=== PATIENT | female | born 1990 | race Caucasian/White ===

== ENCOUNTER 2016-08-29 08:57 | Emergency (ER) | payer OTHER ==
[~2016-08-29] VITALS: Ht 160 cm; Wt 74.7 kg
[~2016-08-29 08:57] MED LIST: ZOFR4TAB3 SL
[2016-08-29 09:15] VITALS: BP 117/81; TEMP 98.1
[2016-08-29] MEDS ORDERED: PROM25TA5 PO (09:44)
[2016-08-29] MEDS ORDERED: CEPH-460 PO (09:44)
--- NOTE | 2016-08-29 09:44 | PD ---
HPI . Persistent vomiting in , cold symptoms, painful mass on her left labia Chief Complaint: Lump, Cyst, Hernia Time Seen by Provider: 09:23 Travel History International Travel<30 days: No Contact w/Intl Traveler<30days: No Traveled to known affect area: No History of Present Illness HPI This patient presents with multiple symptoms. Her chief complaint is that she has developed a mass on her left labia. She is concerned that she has developed a hernia because of persistent vomiting. She states that the mass started yesterday and is actually a bit smaller today but more painful. Patient states that she's been having morning sickness all day long for several weeks. She states that she was 9 weeks . She is taking Zofran 8 mg ODT as needed for vomiting out much relief. 2 days ago, she developed cold symptoms consisting of rhinorrhea, cough and subjective fever. She has taken a subtherapeutic dose of NyQuil without much relief. She states that she did not take a therapeutic dose because of her . The patient further reports constipation associated with Zofran. She states she is taking an [id number] stool softener for . PFSH Past Medical History Hx Anticoagulant Therapy: No ADHD: No Anemia: Yes Asthma: No Autoimmune Disease: Yes Bipolar Disorder: Yes Anxiety: Yes Cancer: No Cardiovascular Problems: No Chemotherapy: No COPD: No Cerebrovascular Accident: No Diabetes: No Diminished Hearing: No Endocrine: Yes (ADRENAL INSUFFICIENCY) Gastrointestinal Disorders: Yes (CELIAC DIS., ULCER HX) GERD: Yes Genitourinary: No Hepatitis: No Hiatal Hernia: No Immune Disorder: No Musculoskeletal: No Neurologic: Yes (SEIZURE HX (UNKNOWN CAUSE), NEUROPATHY LEFT FACE/ARM) Psychiatric: Yes (PTSD, PANIC ATTACKS) Reproductive: No Respiratory: Yes (asthma) Migraines: No Seizures: Yes (HX OF SEIZURES, NOT SINCE AGE 24) Shingles: Yes Sleep Apnea: No Thyroid Disease: No Ulcer: Yes (GASTRIC) PNEUMOCCOCAL Vaccine (Year): 2009 ?: LMP: 06/24/16 Menopausal: No : 2 Para: 1 Past Surgical History Abdominal Surgery: No AICD: No Appendectomy: No Cardiac Surgery: No Cholecystectomy: No Ear Surgery: Yes ("TUBES IN EARS" SEMI-PERMANENT T TUBES) Endocrine Surgery: No Eye Surgery: No Genitourinary Surgery: No Gynecologic Surgery: No Hysterectomy: No Joint Replacement: No Oral Surgery: Yes (TONSILLECTOMY) Pacemaker: No Thoracic Surgery: No Tonsillectomy: Yes Other Surgery: Yes (SINUS RECONSTRUCTION) Social History Alcohol Use: No ("NO DRINKING SINCE MAY 2016") Tobacco Use: Yes (08/01 PPD) Substance Use: Yes ("MARIJUANA OCCASIONALLY") Allergies-Medications (Allergen,Severity, Reaction): Coded Allergies: [place] Nut (Unverified Allergy, Severe, THROAT CLOSES, 08/29/16) Lobster (Unverified Allergy, Severe, VERTIGO, ITCH, THROAT SWELLING, ) Lortab (Verified Allergy, Severe, PALPITATIONS, ITCHING, 08/29/16) [place] (Unverified Allergy, Severe, THROAT CLOSES, 08/29/16) Pineapple (Unverified Allergy, Severe, THROAT CLOSES, ITCH, 08/29/16) Shrimp (Unverified Allergy, Severe, VERTIGO, ITCH, THROAT SWELLILNG, ) Sweet Potato (Unverified Allergy, Severe, THROAT CLOSES, ITCH, VERTIGO, 08/29/16) Gluten (Verified Allergy, Unknown, 08/29/16) *MDRO Multi-Drug Resistant Organism (Verified Adverse Reaction, Unknown, ) 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) Reported Meds & Prescriptions Reported Meds & Active Scripts Active Zofran Odt (Ondansetron Odt) 4 Mg Tab 4 Mg SL Q6HR PRN Review of Systems Except as stated in HPI: all other systems reviewed are Neg General / Constitutional: Positive: Fever, Chills HENT: Positive: Rhinorrhea, Congestion Respiratory: Positive: Cough Gastrointestinal: Positive: Nausea, Vomiting, Constipation Genitourinary: No: Urgency, Frequency, Dysuria Skin: Positive Other (painful mass on her left labia) Physical Exam Narrative GENERAL: This is a healthy-appearing young woman in no acute distress. SKIN: Warm and dry. She has got an early abscess on her left labia majora. It is about 3 cm X 1 cm. It is indurated but is not fluctuant. The overlying skin is not red or hot. It is not a Bartholin's gland abscess. HEAD: Atraumatic. Normocephalic. EYES: Pupils equal and round. ENT: No nasal bleeding or discharge. Mucous membranes pink and moist. Edema of the nasal mucosa. NECK: Trachea midline. Neck is supple with no cervical lymphadenopathy. CARDIOVASCULAR: Regular rate and rhythm. Heart sounds are normal. RESPIRATORY: No accessory muscle use. Lungs are clear with full air movement throughout. GASTROINTESTINAL: Abdomen soft, non-tender, nondistended. MUSCULOSKELETAL: No obvious deformities. No edema. NEUROLOGICAL: Awake and alert. No obvious cranial nerve deficits. Motor grossly within normal limits. Normal speech. PSYCHIATRIC: Appropriate mood and affect; insight and judgment normal. Data Data Last Documented VS Vital Signs Date Time Temp Pulse Resp B/P Pulse Ox O2 Delivery O2 Flow Rate FiO2 08/29/16 09:15 98.1 103 16 117/81 [facility] Medical Decision Making Medical Screen Exam Complete: Yes Emergency Medical Condition: Yes Differential Diagnosis Differential diagnosis of upper respiratory symptoms includes but is not limited to influenza, upper respiratory infection, bronchitis, pneumonia. Differential diagnosis of vomiting includes but is not limited to viral gastritis, food poisoning, pancreatitis, pneumonia, hepatitis, acute coronary syndrome. Narrative Course This patient presents with several issues. She has a cold. She is also with morning sickness which is not controlled by Zofran. And she has an abscess on her left labia. Diagnosis Primary Impression: Abscess of labia majora Additional Impressions: Vomiting affecting , antepartum URI (upper respiratory infection) Qualified Code: J06.9 - Viral upper respiratory tract infection Patient Instructions: Abscess (ED), Cold Symptoms (ED), General Instructions, Nausea and Vomiting in (ED) Additional Instructions: Milk of magnesia at bedtime nightly until stools are soft. Warm, moist heat to genitalia. See your lay out carpenter for recheck of this. Scripts Promethazine (Phenergan)25 Mg Tab25 Mg PO Q6H PRN (Nausea/Vomiting) #30 TAB Ref 0 Prov:Vidhi Mcclellan MD 08/29/16 Cephalexin (Keflex)500 Mg Grm268 Mg PO Q8H #30 CAP Ref 0 Prov:Vidhi Mcclellan MD 08/29/16 Disposition: 01 DISCHARGE HOME Condition: Stable Vidhi Mcclellan MD Aug 29, 2016 09:44
== END 2016-08-29 10:08 | disposition home or self-care (01) ==
LOC: PHED 08:57
DX: O23.591 Infection of other part of genital tract in pregnancy, first trimester (principal); N76.4 Abscess of vulva; O21.9 Vomiting of pregnancy, unspecified; J06.9 Acute upper respiratory infection, unspecified; Z3A.09 9 weeks gestation of pregnancy
CPT/HCPCS: 99283

== ENCOUNTER 2016-11-05 12:10 | Emergency (ER) | payer MEDICAID, OTHER ==
[~2016-11-05] VITALS: Ht 160 cm; Wt 75.0 kg
[~2016-11-05 12:10] MED LIST changes: +CEPH-460 PO; +PROM25TA5 PO
[2016-11-05 12:17] VITALS: BP 109/74; PULSE 98; RESP 16; TEMP 98.4; O2SAT 96
--- NOTE | 2016-11-05 12:52 | PD ---
HPI Chief Complaint: Seizure Time Seen by Provider: 12:36 Travel History International Travel<30 days: No Contact w/Intl Traveler<30days: No Traveled to known affect area: No History of Present Illness HPI The patient was seen and examined in the presence of the nurse. This patient reports that she has "stress-induced seizures". She was arguing with her boyfriend and got stressed out and says that she had one of her events. She fell forward and hit her abdominal wall. She is 19 weeks dated by early ultrasound. It doesn't sound like these are true seizures. She is awake during them. There is no tonic-clonic activity or postictal state. She is not supposed to be on seizure medication for them. Regardless she wanted to make sure the baby was okay. She's had no fluid gush or bleeding. Duration 1 hour. PFSH Past Medical History Hx Anticoagulant Therapy: No ADHD: No Anemia: Yes Asthma: No Autoimmune Disease: Yes Bipolar Disorder: Yes Anxiety: Yes Cancer: No Cardiovascular Problems: No Chemotherapy: No COPD: No Cerebrovascular Accident: No Diabetes: No Diminished Hearing: No Endocrine: Yes (ADRENAL INSUFFICIENCY) Gastrointestinal Disorders: Yes (CELIAC DIS., ULCER HX) GERD: Yes Genitourinary: No Hepatitis: No Hiatal Hernia: No Immune Disorder: No Musculoskeletal: No Neurologic: Yes (SEIZURE HX (UNKNOWN CAUSE), NEUROPATHY LEFT FACE/ARM) Psychiatric: Yes (PTSD, PANIC ATTACKS) Reproductive: No Respiratory: Yes (asthma) Migraines: No Seizures: Yes (HX OF SEIZURES, NOT SINCE AGE 24) Shingles: Yes Sleep Apnea: No Thyroid Disease: No Ulcer: Yes (GASTRIC) PNEUMOCCOCAL Vaccine (Year): 2009 ?: LMP: 06/07/16 Menopausal: No : 2 Para: 1 Past Surgical History Abdominal Surgery: No AICD: No Appendectomy: No Cardiac Surgery: No Cholecystectomy: No Ear Surgery: Yes ("TUBES IN EARS" SEMI-PERMANENT T TUBES) Endocrine Surgery: No Eye Surgery: No Genitourinary Surgery: No Gynecologic Surgery: No Hysterectomy: No Joint Replacement: No Neurologic Surgery: No Oral Surgery: Yes (TONSILLECTOMY) Pacemaker: No Thoracic Surgery: No Tonsillectomy: Yes (AND ADENOIDS) Other Surgery: Yes (BILATERAL SINUS RECONSTRUCTION) Social History Alcohol Use: No ("NO DRINKING SINCE MAY 2016") Tobacco Use: No Substance Use: No (DENIES; HX OF "MARIJUANA OCCASIONALLY") Allergies-Medications (Allergen,Severity, Reaction): Coded Allergies: [place] Nut (Unverified Allergy, Severe, THROAT CLOSES, 11/05/16) Lobster (Unverified Allergy, Severe, VERTIGO, ITCH, THROAT SWELLING, ) Lortab (Verified Allergy, Severe, PALPITATIONS, ITCHING, 11/05/16) [place] (Unverified Allergy, Severe, THROAT CLOSES, 11/05/16) Pineapple (Unverified Allergy, Severe, THROAT CLOSES, ITCH, 11/05/16) Shrimp (Unverified Allergy, Severe, VERTIGO, ITCH, THROAT SWELLILNG, ) Sweet Potato (Unverified Allergy, Severe, THROAT CLOSES, ITCH, VERTIGO, 05/14) Gluten (Verified Allergy, Unknown, 11/05/16) *MDRO Multi-Drug Resistant Organism (Verified Adverse Reaction, Unknown, ) 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) Reported Meds & Prescriptions Reported Meds & Active Scripts Active Phenergan (Promethazine HCl) 25 Mg Tab 25 Mg PO Q6H PRN Keflex (Cephalexin) 500 Mg Cap 500 Mg PO Q8H Zofran Odt (Ondansetron Odt) 4 Mg Tab 4 Mg SL Q6HR PRN Review of Systems General / Constitutional: No: Fever HENT: No: Lightheadedness Cardiovascular: No: Chest Pain or Discomfort Respiratory: No: Shortness of Breath Gastrointestinal: No: Vomiting Physical Exam Narrative GENERAL: Well-nourished, well-developed patient in no apparent distress. SKIN: Focused skin assessment reveals no rash and nodules. Skin is Warm and dry. HEAD: Atraumatic. Normocephalic. EYES: Pupils equal and round. No scleral icterus. No injection or drainage. ENT: No nasal bleeding or discharge. Mucous membranes pink and moist. NECK: Trachea midline. No JVD. CARDIOVASCULAR: Regular rate and rhythm. No murmur appreciated. RESPIRATORY: No accessory muscle use. Clear to auscultation. Breath sounds equal bilaterally. GASTROINTESTINAL: Abdomen soft, gravid uterus is non-tender, nondistended. Hepatic and splenic margins not palpable. MUSCULOSKELETAL: No obvious deformities. No clubbing. No cyanosis. No edema. NEUROLOGICAL: Awake and alert. No obvious cranial nerve deficits. Motor grossly within normal limits. Normal speech. PSYCHIATRIC: Appropriate mood and affect; insight and judgment normal. Pelvic: Sterile gloves were used for her cervix evaluation. No blood or fluid in the vault. Cervix closed. Data Data Last Documented VS Vital Signs Date Time Temp Pulse Resp B/P Pulse Ox O2 Delivery O2 Flow Rate FiO2 11/05/16 12:45 16 11/05/16 12:17 98.4 98 109/74 96 MDM Medical Decision Making Medical Screen Exam Complete: Yes Emergency Medical Condition: Yes Medical Record Reviewed: Yes Differential Diagnosis Abdominal wall contusion, abdominal wall strain, miscarriage Narrative Course I have reviewed the patient's electronic medical record. No objective evidence of anything serious happening at this time No objective findings of injury to the patient Cervix closed without bleeding heart tones 140 and regular Good movement reported by mother Recommend they notified her OB physician to get a follow-up check Pelvic rest recommended in the meantime Diagnosis Primary Impression: Abdominal wall contusion Additional Impression: Qualified Code: Z3A.19 - 19 weeks gestation of Additional Instructions: The patient was advised to follow up with their physician and return if they worsen. Med/Other Pt SpecificInfo: Other Disposition: 01 DISCHARGE HOME Condition: Stable Heron Fagan MD Nov 05, 2016 12:52
== END 2016-11-05 12:58 | disposition home or self-care (01) ==
LOC: PHED 12:10
DX: O26.892 Other specified pregnancy related conditions, second trimester (principal); O99.342 Other mental disorders complicating pregnancy, second trimester; O99.282 Endocrine, nutritional and metabolic diseases complicating pregnancy, second trimester; S30.1XXA Contusion of abdominal wall, initial encounter; E27.40 Unspecified adrenocortical insufficiency; F31.9 Bipolar disorder, unspecified; Z3A.19 19 weeks gestation of pregnancy; W18.30XA Fall on same level, unspecified, initial encounter; Y93.9 Activity, unspecified; Y92.9 Unspecified place or not applicable; Y99.9 Unspecified external cause status
CPT/HCPCS: 99283

== ENCOUNTER 2017-07-18 20:18 | Emergency (ER) | payer MEDICAID ==
[2017-07-18 20:21] VITALS: BP 115/58; PULSE 77; RESP 20; TEMP 98.3; O2SAT 98
[2017-07-18] MEDS ORDERED: TYLE325T PO (20:33)
--- NOTE | 2017-07-18 21:11 | PD ---
HPI Chief Complaint: Injury Time Seen by Provider: 20:50 Travel History International Travel<30 days: No Contact w/Intl Traveler<30days: No Traveled to known affect area: No History of Present Illness HPI pt had her left hand slammed in the car door at 4 pm 3 hrs prior to presentation to ER , no laceration and no obvious deformity but she has thenar eminence area tenderness and radial area wrist pain PFSH Past Medical History Hx Anticoagulant Therapy: No ADHD: No Anemia: Yes Asthma: No Autoimmune Disease: Yes Bipolar Disorder: Yes Anxiety: Yes Cancer: No Cardiovascular Problems: No Chemotherapy: No COPD: No Cerebrovascular Accident: No Diabetes: No Diminished Hearing: No Endocrine: Yes (ADRENAL INSUFFICIENCY) Gastrointestinal Disorders: Yes (CELIAC DIS., ULCER HX) GERD: Yes Genitourinary: No Hepatitis: No Hiatal Hernia: No Hypertension: No Immune Disorder: No Musculoskeletal: No Neurologic: Yes (SEIZURE HX (UNKNOWN CAUSE), NEUROPATHY LEFT FACE/ARM) Psychiatric: Yes (PTSD, PANIC ATTACKS) Reproductive: No Respiratory: Yes (asthma) Immunizations Current: Yes Migraines: No Seizures: Yes (HX OF SEIZURES, NOT SINCE AGE 24) Shingles: Yes Sleep Apnea: No Thyroid Disease: No Ulcer: Yes (GASTRIC) Tetanus Vaccination: < 5 Years Influenza Vaccination: No PNEUMOCCOCAL Vaccine (Year): 2009 ?: Not Menopausal: No : 2 Para: 1 Past Surgical History Abdominal Surgery: No AICD: No Appendectomy: No Cardiac Surgery: No Cholecystectomy: No Ear Surgery: Yes ("TUBES IN EARS" SEMI-PERMANENT T TUBES) Endocrine Surgery: No Eye Surgery: No Genitourinary Surgery: No Gynecologic Surgery: No Hysterectomy: No Joint Replacement: No Neurologic Surgery: No Oral Surgery: Yes (TONSILLECTOMY) Pacemaker: No Thoracic Surgery: No Tonsillectomy: Yes (AND ADENOIDS) Other Surgery: Yes (BILATERAL SINUS RECONSTRUCTION) Social History Alcohol Use: No (Rare) Tobacco Use: Yes (1/2 PPD) Substance Use: No (Marijuana weekly) Allergies-Medications (Allergen,Severity, Reaction): Coded Allergies: acetaminophen (Verified Allergy, Severe, PALPITATIONS, ITCHING, 07/18/17) bertholletia excelsa (Verified Allergy, Severe, THROAT CLOSES, 07/18/17) hydrocodone (Verified Allergy, Severe, PALPITATIONS, ITCHING, 07/18/17) orange (Verified Allergy, Severe, THROAT CLOSES, 07/18/17) pineapple (Verified Allergy, Severe, THROAT CLOSES, ITCH, 07/18/17) shellfish derived (Verified Allergy, Severe, VERTIGO, ITCH, THROAT SWELLING, 07/18/17) shrimp (Verified Allergy, Severe, VERTIGO, ITCH, THROAT SWELLILNG, ) sweet potato (Verified Allergy, Severe, THROAT CLOSES, ITCH, VERTIGO, ) tree nut (Verified Allergy, Severe, THROAT CLOSES, 07/18/17) gluten (Verified Allergy, Unknown, 07/18/17) *MDRO Multi-Drug Resistant Organism (Verified Adverse Reaction, Unknown, 07/18/17) 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) Reported Meds & Prescriptions Reported Meds & Active Scripts Active Ibuprofen 800 Mg Tab 800 Mg PO Q6HR PRN Reported Tylenol (Acetaminophen) 325 Mg Tab 650 Mg PO Q4H PRN Review of Systems Except as stated in HPI: all other systems reviewed are Neg Musculoskeletal: Positive: Myalgias, Arthralgias (thumb tenderness after car door slammed on it) Physical Exam Narrative GENERAL: non toxic AOX3 SKIN: Warm and dry. HEAD: Atraumatic. Normocephalic. EYES: Pupils equal and round. No scleral icterus. No injection or drainage. ENT: No nasal bleeding or discharge. Mucous membranes pink and moist. NECK: Trachea midline. No JVD. CARDIOVASCULAR: Regular rate and rhythm. RESPIRATORY: No accessory muscle use. Clear to auscultation. Breath sounds equal bilaterally. GASTROINTESTINAL: Abdomen soft, non-tender, nondistended. Hepatic and splenic margins not palpable. MUSCULOSKELETAL: Extremities Left thenar eminence very tender no lac no hematoma , mild swelling without clubbing, cyanosis, or edema. No obvious deformities. NEUROLOGICAL: Awake and alert. No obvious cranial nerve deficits. Motor grossly within normal limits. Five out of 5 muscle strength in the arms and legs. Normal speech. PSYCHIATRIC: Appropriate mood and affect; insight and judgment normal. Data Data Last Documented VS Vital Signs Date Time Temp Pulse Resp B/P (MAP) Pulse Ox O2 Delivery O2 Flow Rate FiO2 07/18/17 20:21 98.3 77 20 115/58 (77) 98 Orders Orders Hand, Complete ([id number]) (07/18/17 ) Ibuprofen (Motrin) (07/18/17 21:15) Rafael Bandage (07/18/17 21:44) Ed Discharge Order (07/18/17 21:48) MDM Medical Decision Making Medical Screen Exam Complete: Yes Emergency Medical Condition: Yes Differential Diagnosis sprain vs ligamentous inury vs scaphoid injury vs fractured thumb metacarpal , Narrative Course X-rays were negative for fracture or ligamentous injury patient is placed in a Rafael wrap given Motrin prescription and discharged home to follow-up as an outpatient Diagnosis Primary Impression: Contusion Additional Impression: Contusion of hand, left Qualified Codes: S60.222A - Contusion of left hand, initial encounter Scripts Ibuprofen (Ibuprofen) 800 Mg Tab 800 MG PO Q6HR Y for PAIN, #20 TAB 0 Refills Prov: Candelario Arriola MD 07/18/17 Disposition: 01 DISCHARGE HOME Condition: Good Candelario Arriola MD Jul 18, 2017 21:11
[2017-07-18] MEDS ORDERED: IBUPROFEN 600 MG TAB PO ONE (21:15)
--- NOTE | 2017-07-18 21:32 | RADRPT ---
EXAM DATE/TIME: 07/18/2017 21:05 [facility] COMPARISON: No previous studies available for comparison. INDICATIONS : Car door slammed on hand this afternoon. Pain in first digit radiating up to her wrist. MEDICAL HISTORY : . Gastroesophageal reflux disease. Seizures. Neuropathy. Asthma. Ulcer. Celiac disease. Adre nal insufficiency. Bipolar disorder. Post traumatic stress disorder. Anemia. Shingles. SURGICAL HISTORY : Tonsillectomy. Ear surgery. Sinus reconstruction ENCOUNTER: Initial ACUITY: 1 day PAIN SCORE: 7/10 LOCATION: Left Thumb FINDINGS: Three view examination of the left hand demonstrates no soft tissue swelling, dislocation, or fractur e. The carpal bones appear intact. The interphalangeal and metacarpophalangeal joints are intact. Bony mineralization is normal. CONCLUSION: No evidence of recent bony injury. Kyle Upton MD on July 18, 2017 at 21:29 Board Certified Radiologist. This report was verified electronically.
[2017-07-18] MEDS ORDERED: IBUP1TAB7 PO (21:47)
== END 2017-07-18 21:56 | disposition home or self-care (01) ==
LOC: PHEFT 20:18
DX: S60.222A Contusion of left hand, initial encounter (principal); F31.9 Bipolar disorder, unspecified; E27.40 Unspecified adrenocortical insufficiency; K21.9 Gastro-esophageal reflux disease without esophagitis; F43.10 Post-traumatic stress disorder, unspecified; J45.909 Unspecified asthma, uncomplicated; W23.0XXA Caught, crushed, jammed, or pinched between moving objects, initial encounter; F17.210 Nicotine dependence, cigarettes, uncomplicated
CPT/HCPCS: 73130; 99283

== ENCOUNTER 2017-09-12 15:03 | Emergency (ER) | payer MEDICAID ==
[~2017-09-12] VITALS: Ht 160 cm; Wt 72.0 kg
[~2017-09-12 15:03] MED LIST changes: -CEPH-460 PO; +IBUP1TAB7 PO; -PROM25TA5 PO; +TYLE325T PO; -ZOFR4TAB3 SL
[2017-09-12 15:06] VITALS: BP 126/72; PULSE 93; RESP 16; TEMP 98.5; O2SAT 96
[2017-09-12] MEDS ORDERED: OFLO0.3D5 LEFT EAR (15:21)
[2017-09-12] MEDS ORDERED: birth control pill PO (15:24)
[2017-09-12] MEDS ORDERED: HYDR-3133 PO (15:24)
--- NOTE | 2017-09-12 15:29 | PD ---
HPI Chief Complaint: ENT Complaint Time Seen by Provider: 15:08 Travel History International Travel<30 days: No Contact w/Intl Traveler<30days: No Traveled to known affect area: No History of Present Illness HPI 27-year-old female presents to the emergency room for evaluation of left ear pain for the past 6 days. Patient had bilateral tympanostomy tube placement about 2 years ago for chronic eustachian tube dysfunction and has had intermittent issues with otorrhea since then. States the drainage is chronic and no worse than typical over the past several days. Pain is increasing. Pain started to worsen after she accidentally got water in her ears during the shower. She has taken Tylenol and Excedrin without significant relief in symptoms. She denies any fevers. States she can feel fluid moving behind her eardrum. She does not have an ENT at the moment because of insurance reasons. History of Dmitriy's, celiac, anxiety, and PTSD. PFSH Past Medical History Hx Anticoagulant Therapy: No ADHD: No Anemia: Yes Asthma: No Autoimmune Disease: Yes Bipolar Disorder: Yes Anxiety: Yes Cancer: No Cardiovascular Problems: No Chemotherapy: No COPD: No Cerebrovascular Accident: No Diabetes: No Diminished Hearing: No Endocrine: Yes (ADRENAL INSUFFICIENCY, dmitriy's disease) Gastrointestinal Disorders: Yes (CELIAC DIS., ULCER HX) GERD: Yes Genitourinary: No Hepatitis: No Hiatal Hernia: No Hypertension: No Immune Disorder: No Musculoskeletal: No Neurologic: Yes (SEIZURE HX (UNKNOWN CAUSE), NEUROPATHY LEFT FACE/ARM) Psychiatric: Yes (PTSD, PANIC ATTACKS) Reproductive: No Respiratory: Yes (asthma) Immunizations Current: Yes Migraines: No Seizures: Yes (HX OF SEIZURES, NOT SINCE AGE 24) Shingles: Yes Sleep Apnea: No Thyroid Disease: No Ulcer: Yes (GASTRIC) PNEUMOCCOCAL Vaccine (Year): 2009 ?: Not LMP: 2 DAYS Menopausal: No : 2 Para: 1 Past Surgical History Abdominal Surgery: No AICD: No Appendectomy: No Cardiac Surgery: No Cholecystectomy: No Ear Surgery: Yes ("TUBES IN EARS" SEMI-PERMANENT T TUBES) Endocrine Surgery: No Eye Surgery: No Genitourinary Surgery: No Gynecologic Surgery: No Hysterectomy: No Joint Replacement: No Neurologic Surgery: No Oral Surgery: Yes (TONSILLECTOMY) Pacemaker: No Thoracic Surgery: No Tonsillectomy: Yes (AND ADENOIDS) Other Surgery: Yes (BILATERAL SINUS RECONSTRUCTION) Social History Alcohol Use: No (Rare) Tobacco Use: Yes (1/2 PPD) Substance Use: No (Marijuana weekly) Allergies-Medications (Allergen,Severity, Reaction): Coded Allergies: acetaminophen (Verified Allergy, Severe, PALPITATIONS, ITCHING, 09/12/17) bertholletia excelsa (Verified Allergy, Severe, THROAT CLOSES, 09/12/17) hydrocodone (Verified Allergy, Severe, PALPITATIONS, ITCHING, 09/12/17) orange (Verified Allergy, Severe, THROAT CLOSES, 09/12/17) pineapple (Verified Allergy, Severe, THROAT CLOSES, ITCH, 09/12/17) shellfish derived (Verified Allergy, Severe, VERTIGO, ITCH, THROAT SWELLING, 09/12/17) shrimp (Verified Allergy, Severe, VERTIGO, ITCH, THROAT SWELLILNG, 09/12/17 ) sweet potato (Verified Allergy, Severe, THROAT CLOSES, ITCH, VERTIGO, 09/12) tree nut (Verified Allergy, Severe, THROAT CLOSES, 09/12/17) gluten (Verified Allergy, Unknown, 09/12/17) *MDRO Multi-Drug Resistant Organism (Verified Adverse Reaction, Unknown, ) 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) Reported Meds & Prescriptions Reported Meds & Active Scripts Active Ofloxacin Opth Drops 0.3 % Drops 4 Drop LEFT EAR BID Ibuprofen 800 Mg Tab 800 Mg PO Q6HR PRN Reported Tylenol (Acetaminophen) 325 Mg Tab 650 Mg PO Q4H PRN Review of Systems Except as stated in HPI: all other systems reviewed are Neg Physical Exam Narrative GENERAL: Well-nourished, well-developed female no acute distress. Afebrile. Ambulatory. SKIN: Focused skin assessment warm/dry. HEAD: Normocephalic. EYES: No scleral icterus. No injection or drainage. EARS: Bilateral pinnae and external canals appear within normal limits. Bilateral tympanic membranes without erythema, dullness. No drainage. Bilateral tympanostomy tubes in place and patent. NECK: Supple, trachea midline. No JVD or lymphadenopathy. CARDIOVASCULAR: Regular rate and rhythm without murmurs, gallops, or rubs. RESPIRATORY: Breath sounds equal bilaterally. No accessory muscle use. Data Data Last Documented VS Vital Signs Date Time Temp Pulse Resp B/P (MAP) Pulse Ox O2 Delivery O2 Flow Rate FiO2 09/12/17 15:06 98.5 93 16 126/72 (90) 96 MDM Medical Decision Making Medical Screen Exam Complete: Yes Emergency Medical Condition: Yes Medical Record Reviewed: Yes Differential Diagnosis Tympanostomy tube otorrhea, eustachian tube dysfunction, otitis media, otitis externa Narrative Course 27-year-old female presents to the emergency room for evaluation of left ear pain for the past 6 days. She has chronic drainage from the ears after tympanostomy tube placement 2 years ago but it is no worse than normal. No fevers. Bilateral tympanic membranes without erythema, dullness. No drainage. Bilateral tympanostomy tubes in place and patent. Patient will be treated for tympanostomy tube otorrhea given recent exposure to water and worsening pain. Told to follow-up with an ENT or return for worsening symptoms. She understands and agrees to plan. Diagnosis Primary Impression: Chronic otorrhea Qualified Codes: H92.13 - Otorrhea, bilateral Referrals: Primary Care Physician Additional Instructions: Apply drops as directed. Follow up with ENT. Return for worsening symptoms. Scripts Ofloxacin Opth Drops (Ofloxacin Opth Drops) 0.3 % Drops 4 DROP LEFT EAR BID, #1 BOTTLE Prov: César Perez MD 09/12/17 Disposition: 01 DISCHARGE HOME Condition: Stable Ciarra Walter Sep 12, 2017 15:29
== END 2017-09-12 15:37 | disposition home or self-care (01) ==
LOC: PHEFT 15:03
DX: H92.13 Otorrhea, bilateral (principal); E27.1 Primary adrenocortical insufficiency; F31.9 Bipolar disorder, unspecified; F43.10 Post-traumatic stress disorder, unspecified; F41.0 Panic disorder [episodic paroxysmal anxiety]; F17.210 Nicotine dependence, cigarettes, uncomplicated; Z88.5 Allergy status to narcotic agent
CPT/HCPCS: 99283

== ENCOUNTER 2017-09-26 08:47 | Emergency (ER) | payer MEDICAID ==
[~2017-09-26 08:47] MED LIST changes: +HYDR-3133 PO; -IBUP1TAB7 PO; +OFLO0.3D5 LEFT EAR; -TYLE325T PO; +birth control pill PO
[2017-09-26 08:55] VITALS: BP 131/97; PULSE 89; RESP 18; TEMP 97.4; O2SAT 99
[2017-09-26] MEDS ORDERED: SODIUM CHLOR 0.9% 1000 ML INJ 1,000 ML IV ONE ×2 (09:00)
[2017-09-26] MEDS ORDERED: ONDANSETRON HCL 4 MG/2 ML VIAL IV PUSH ONE ×2 (09:00→10:45)
--- NOTE | 2017-09-26 09:04 | PD ---
HPI Chief Complaint: Abdominal Pain Time Seen by Provider: 08:56 Travel History International Travel<30 days: No Contact w/Intl Traveler<30days: No Traveled to known affect area: No History of Present Illness HPI This 27-year-old female is complaining of vomiting diarrhea and abdominal pain. Symptoms started early this morning around 3 AM. She has had persistent vomiting. The pain she is having she thinks is from the vomiting. It is from the epigastric area to the mid abdominal area it is crampy in nature she has a history of celiac disease but says this does not feel like her celiac disease acting up. Her blood count has come back elevated at 22,000. On further questioning about this the patient states that she has been told that her white count has been high in the past and she has been recommended that she follow-up with her oncologist regarding this. She had been to an soda fountain clerk who had noted that her white count was high. She denies any cough. She has not had any dysuria. She says she was well until 3 this morning with started vomiting. She had been out to eat at [place] last night PFSH Past Medical History Hx Anticoagulant Therapy: No ADHD: No Anemia: Yes Asthma: No Autoimmune Disease: Yes Bipolar Disorder: Yes Anxiety: Yes Cancer: No Cardiovascular Problems: No Chemotherapy: No COPD: No Cerebrovascular Accident: No Diabetes: No Diminished Hearing: No Endocrine: Yes (ADRENAL INSUFFICIENCY, frederic's disease) Gastrointestinal Disorders: Yes (CELIAC DIS., ULCER HX) GERD: Yes Genitourinary: No Hepatitis: No Hiatal Hernia: No Hypertension: No Immune Disorder: No Musculoskeletal: No Neurologic: Yes (SEIZURE HX (UNKNOWN CAUSE), NEUROPATHY LEFT FACE/ARM) Psychiatric: Yes (PTSD, PANIC ATTACKS) Reproductive: No Respiratory: Yes (asthma) Immunizations Current: Yes Migraines: No Seizures: Yes (HX OF SEIZURES, NOT SINCE AGE 24) Shingles: Yes Sleep Apnea: No Thyroid Disease: No Ulcer: Yes (GASTRIC) PNEUMOCCOCAL Vaccine (Year): 2009 ?: Not Menopausal: No : 2 Para: 1 Past Surgical History Abdominal Surgery: No AICD: No Appendectomy: No Cardiac Surgery: No Cholecystectomy: No Ear Surgery: Yes ("TUBES IN EARS" SEMI-PERMANENT T TUBES) Endocrine Surgery: No Eye Surgery: No Genitourinary Surgery: No Gynecologic Surgery: No Hysterectomy: No Joint Replacement: No Neurologic Surgery: No Oral Surgery: Yes (TONSILLECTOMY) Pacemaker: No Thoracic Surgery: No Tonsillectomy: Yes (AND ADENOIDS) Other Surgery: Yes (BILATERAL SINUS RECONSTRUCTION) Social History Alcohol Use: No (Rare) Tobacco Use: Yes (1/2 PPD) Substance Use: No (Marijuana weekly) Allergies-Medications (Allergen,Severity, Reaction): Coded Allergies: acetaminophen (Verified Allergy, Severe, PALPITATIONS, ITCHING, 09/26/17) bertholletia excelsa (Verified Allergy, Severe, THROAT CLOSES, 09/26/17) hydrocodone (Verified Allergy, Severe, PALPITATIONS, ITCHING, 09/26/17) orange (Verified Allergy, Severe, THROAT CLOSES, 09/26/17) pineapple (Verified Allergy, Severe, THROAT CLOSES, ITCH, 09/26/17) shellfish derived (Verified Allergy, Severe, VERTIGO, ITCH, THROAT SWELLING, 09/26/17) shrimp (Verified Allergy, Severe, VERTIGO, ITCH, THROAT SWELLILNG, 09/26/17) sweet potato (Verified Allergy, Severe, THROAT CLOSES, ITCH, VERTIGO, ) tree nut (Verified Allergy, Severe, THROAT CLOSES, 09/26/17) gluten (Verified Allergy, Unknown, 09/26/17) *MDRO Multi-Drug Resistant Organism (Verified Adverse Reaction, Unknown, ) 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) Reported Meds & Prescriptions Reported Meds & Active Scripts Active Review of Systems General / Constitutional: No: Fever, Chills Eyes: No: Diploplia, Blurred Vision HENT: No: Headaches, Vertigo Cardiovascular: No: Chest Pain or Discomfort, Palpitations Respiratory: No: Cough, Shortness of Breath Gastrointestinal: Positive: Nausea, Vomiting, Diarrhea, Abdominal Pain Genitourinary: No: Urgency, Frequency Musculoskeletal: No: Myalgias, Arthralgias Skin: No Rash, No Itching Neurologic: No: Weakness, Dizziness Endocrine: No: Heat Intolerance, Cold Intolerance Hematologic/Lymphatic: No: Easy Bruising Physical Exam Narrative GENERAL: Well-developed female on arrival she is quite uncomfortable with nausea vomiting SKIN: Focused skin assessment warm/dry. HEAD: Atraumatic. Normocephalic. EYES: Pupils equal and round. No scleral icterus. No injection or drainage. ENT: No nasal bleeding or discharge. Mucous membranes pink and moist. NECK: Trachea midline. No JVD. CARDIOVASCULAR: Regular rate and rhythm. No murmur appreciated. RESPIRATORY: No accessory muscle use. Clear to auscultation. Breath sounds equal bilaterally. GASTROINTESTINAL: Abdomen soft, mild diffuse, nondistended. Hepatic and splenic margins not palpable. MUSCULOSKELETAL: No obvious deformities. No clubbing. No cyanosis. No edema. NEUROLOGICAL: Awake and alert. No obvious cranial nerve deficits. Motor grossly within normal limits. Normal speech. PSYCHIATRIC: Appropriate mood and affect; insight and judgment normal. Data Data Last Documented VS Vital Signs Date Time Temp Pulse Resp B/P (MAP) Pulse Ox O2 Delivery O2 Flow Rate FiO2 09/26/17 08:55 97.4 89 18 131/97 (108) 99 Orders Orders Complete Blood Count With Diff (09/26/17 08:56) Comprehensive Metabolic Panel (09/26/17 08:56) Lipase (09/26/17 08:56) Sodium Chlor 0.9% 1000 Ml Inj (Ns 1000 M (09/26/17 09:00) Sodium Chlor 0.9% 1000 Ml Inj (Ns 1000 M (09/26/17 09:00) Ondansetron Inj (Zofran Inj) (09/26/17 09:00) Labs Laboratory Tests Test 09/26/17 08:55 White Blood Count 22.5 TH/MM3 Red Blood Count 5.10 MIL/MM3 Hemoglobin 16.2 GM/DL Hematocrit 45.9 % Mean Corpuscular Volume 90.0 FL Mean Corpuscular Hemoglobin 31.7 PG Mean Corpuscular Hemoglobin Concent 35.3 % Red Cell Distribution Width 13.4 % Platelet Count 293 TH/MM3 Mean Platelet Volume 9.0 FL Neutrophils (%) (Auto) 86.6 % Lymphocytes (%) (Auto) 4.6 % Monocytes (%) (Auto) 5.4 % Eosinophils (%) (Auto) 2.2 % Basophils (%) (Auto) 1.2 % Neutrophils # (Auto) 19.5 TH/MM3 Lymphocytes # (Auto) 1.0 TH/MM3 Monocytes # (Auto) 1.2 TH/MM3 Eosinophils # (Auto) 0.5 TH/MM3 Basophils # (Auto) 0.3 TH/MM3 CBC Comment DIFF FINAL Differential Comment Blood Urea Nitrogen 20 MG/DL Creatinine 0.87 MG/DL Random Glucose 125 MG/DL Total Protein 8.2 GM/DL Albumin 4.5 GM/DL Calcium Level 9.7 MG/DL Alkaline Phosphatase 65 U/L Aspartate Amino Transf (AST/SGOT) 18 U/L Alanine Aminotransferase (ALT/SGPT) 21 U/L Total Bilirubin 0.8 MG/DL Sodium Level 137 MEQ/L Potassium Level 3.9 MEQ/L Chloride Level 109 MEQ/L Carbon Dioxide Level 18.8 MEQ/L Anion Gap 9 MEQ/L Estimat Glomerular Filtration Rate 78 ML/MIN Lipase 168 U/L [facility] Medical Decision Making Medical Screen Exam Complete: Yes Emergency Medical Condition: Yes Medical Record Reviewed: Yes Differential Diagnosis Differential includes acute gastroenteritis, food poisoning, tractable vomiting Narrative Course Patient has been given IV fluids and Zofran with good response. White count is elevated at 22,000. I have discussed this with the patient. She has no symptoms of other infection. She has been told in the past that her white count is been elevated and workup has been recommended but she has not pursued this. She feels well at this time and will be released with prescription for Zofran Diagnosis Primary Impression: Acute gastroenteritis Scripts Ondansetron Odt (Zofran Odt) 4 Mg Tab 4 MG SL Q8HR Y for Nausea/Vomiting, #10 TAB 0 Refills Prov: Herson Bates MD 09/26/17 Disposition: 01 DISCHARGE HOME Condition: Stable Herson Bates MD Sep 26, 2017 09:04
[2017-09-26 09:06] LABS: AUTOMATED NEUTROPHIL # 19.5 TH/MM3 (1.8-7.7); BASOPHIL # 0.3 TH/MM3 (0-0.2); BASOPHIL % 1.2 % (0.0-2.0); EOSINOPHIL # 0.5 TH/MM3 (0-0.4); EOSINOPHIL % 2.2 % (0.0-4.0); HEMATOCRIT 45.9 % (35.0-46.0); HEMOGLOBIN 16.2 GM/DL (11.6-15.3); LYMPH % 4.6 % (9.0-44.0); MEAN CORPUSCULAR HEMOGLOBIN 31.7 PG (27.0-34.0); MEAN CORPUSCULAR HGB CONC 35.3 % (32.0-36.0); MONO % 5.4 % (0.0-8.0); MONOCYTE # 1.2 TH/MM3 (0-0.9); NEUT % 86.6 % (16.0-70.0); PLATELET COUNT 293 TH/MM3 (150-450); RED CELL DISTRIBUTION WIDTH 13.4 % (11.6-17.2); WHITE BLOOD COUNT 22.5 TH/MM3 (4.0-11.0)
[2017-09-26 09:11] LABS: CHLORIDE 109 MEQ/L (98-107); SODIUM (NA) 137 MEQ/L (136-145)
[2017-09-26 09:19] LABS: ALBUMIN 4.5 GM/DL (3.4-5.0); BICARBONATE 18.8 MEQ/L (21.0-32.0); BLOOD UREA NITROGEN 20 MG/DL (7-18); GLUCOSE,RANDOM 125 MG/DL (74-106)
[2017-09-26 09:21] LABS: ALT (GPT) 21 U/L (10-53)
[2017-09-26 09:22] LABS: AST (GOT) 18 U/L (15-37); CREATININE 0.87 MG/DL (0.50-1.00); GLOMERULAR FILTRATION RATE 78 ML/MIN (>89)
[2017-09-26 09:23] LABS: TOTAL BILIRUBIN ADULT 0.8 MG/DL (0.2-1.0); TOTAL PROTEIN 8.2 GM/DL (6.4-8.2)
[2017-09-26 09:24] LABS: ALKALINE PHOSPHATASE 65 U/L (45-117)
[2017-09-26 09:30] VITALS: BP 117/68; PULSE 80; RESP 16; O2SAT 99
[2017-09-26 09:51] LABS: CALCIUM 9.7 MG/DL (8.5-10.1)
[2017-09-26 10:23] VITALS: BP 96/59; PULSE 85; RESP 17; O2SAT 99
[2017-09-26] MEDS ORDERED: ZOFR4TAB3 SL (10:25)
[2017-09-26 11:19] VITALS: BP 114/66
== END 2017-09-26 11:22 | disposition home or self-care (01) ==
LOC: PHED 08:47
DX: K52.9 Noninfective gastroenteritis and colitis, unspecified (principal); F31.9 Bipolar disorder, unspecified; F17.210 Nicotine dependence, cigarettes, uncomplicated; Z88.6 Allergy status to analgesic agent; Z88.5 Allergy status to narcotic agent; Z91.018 Allergy to other foods; Z91.013 Allergy to seafood
CPT/HCPCS: 80053; 83690; 85025; 96361; 96374; 96376; 99284; J2405; J7030

== ENCOUNTER 2017-12-25 23:57 | Emergency (ER) | payer MEDICAID ==
[~2017-12-25] VITALS: Ht 165.1 cm; Wt 68.0 kg
[~2017-12-25 23:57] MED LIST changes: -HYDR-3133 PO; -OFLO0.3D5 LEFT EAR; +ZOFR4TAB3 SL; -birth control pill PO
[2017-12-26 00:03] VITALS: BP 142/78; PULSE 109; RESP 18; TEMP 98.4; O2SAT 97
[2017-12-26 00:10] VITALS: BP 142/78; PULSE 109; RESP 18; TEMP 99.4; O2SAT 97
[2017-12-26] MEDS ORDERED: IBUPROFEN 800 MG TAB PO ONE (00:30)
--- NOTE | 2017-12-26 00:53 | PD ---
HPI . Fall Chief Complaint: Fall Time Seen by Provider: 00:13 Travel History International Travel<30 days: No Contact w/Intl Traveler<30days: No History of Present Illness HPI This patient presents status post a fall with an injury to her face. She states she got up to go to the bathroom and tripped and fell onto a toy. She struck her nose and mouth. She comes in complaining with pain in her nose and mouth. She denies loss of consciousness. She does admit to neck pain. The incident occurred just prior to presentation. Symptoms are mild. No modifying factors. PFSH Past Medical History Hx Anticoagulant Therapy: No ADHD: No Anemia: Yes Asthma: No Autoimmune Disease: Yes Bipolar Disorder: Yes Anxiety: Yes Cancer: No Cardiovascular Problems: No Chemotherapy: No COPD: No Cerebrovascular Accident: No Diabetes: No Diminished Hearing: No Endocrine: Yes (ADRENAL INSUFFICIENCY, frederic's disease) Gastrointestinal Disorders: Yes (CELIAC DIS., ULCER HX) GERD: Yes Genitourinary: No Hepatitis: No Hiatal Hernia: No Hypertension: No Immune Disorder: No Musculoskeletal: No Neurologic: Yes (SEIZURE HX (UNKNOWN CAUSE), NEUROPATHY LEFT FACE/ARM) Psychiatric: Yes (PTSD, PANIC ATTACKS) Reproductive: No Respiratory: Yes (asthma) Immunizations Current: Yes Migraines: No Seizures: Yes (HX OF SEIZURES, NOT SINCE AGE 25) Shingles: Yes Sleep Apnea: No Thyroid Disease: No Ulcer: Yes (GASTRIC) PNEUMOCCOCAL Vaccine (Year): 2009 Menopausal: No : 2 Para: 1 Past Surgical History Abdominal Surgery: No AICD: No Appendectomy: No Cardiac Surgery: No Cholecystectomy: No Ear Surgery: Yes ("TUBES IN EARS" SEMI-PERMANENT T TUBES) Endocrine Surgery: No Eye Surgery: No Genitourinary Surgery: No Gynecologic Surgery: No Hysterectomy: No Joint Replacement: No Neurologic Surgery: No Oral Surgery: Yes (TONSILLECTOMY) Pacemaker: No Thoracic Surgery: No Tonsillectomy: Yes (AND ADENOIDS) Other Surgery: Yes (BILATERAL SINUS RECONSTRUCTION) Social History Alcohol Use: No (Rare) Tobacco Use: Yes (1/2 PPD) Substance Use: No (Marijuana weekly) Allergies-Medications (Allergen,Severity, Reaction): Coded Allergies: acetaminophen (Verified Allergy, Severe, PALPITATIONS, ITCHING, 12/26/17) bertholletia excelsa (Verified Allergy, Severe, THROAT CLOSES, 12/26/17) hydrocodone (Verified Allergy, Severe, PALPITATIONS, ITCHING, 12/26/17) orange (Verified Allergy, Severe, THROAT CLOSES, 12/26/17) pineapple (Verified Allergy, Severe, THROAT CLOSES, ITCH, 12/26/17) shellfish derived (Verified Allergy, Severe, VERTIGO, ITCH, THROAT SWELLING, 12/26/17) shrimp (Verified Allergy, Severe, VERTIGO, ITCH, THROAT SWELLILNG, 12/26/17 ) sweet potato (Verified Allergy, Severe, THROAT CLOSES, ITCH, VERTIGO, 12/26) tree nut (Verified Allergy, Severe, THROAT CLOSES, 12/26/17) gluten (Verified Allergy, Unknown, 12/26/17) *MDRO Multi-Drug Resistant Organism (Verified Adverse Reaction, Unknown, ) 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 SKIN: Warm and dry. HEAD: Normocephalic/atraumatic. EYES: Pupils are equal. Extraocular movements are intact. ENT: No epistaxis. The bridge of the nose has no crepitus or movement with palpation. She has some mild edema of her lips but no laceration. Teeth are intact. NECK: Normal range of motion. Diffuse tenderness. CARDIOVASCULAR: Regular rate and rhythm. RESPIRATORY: Nonlabored respirations. MUSCULOSKELETAL: Atraumatic. NEUROLOGICAL: Nonfocal. PSYCHIATRIC: Appropriate mood and affect. Data Data Last Documented VS Vital Signs Date Time Temp Pulse Resp B/P (MAP) Pulse Ox O2 Delivery O2 Flow Rate FiO2 12/26/17 00:25 18 97 12/26/17 00:10 99.4 109 142/78 (99) Orders Orders Ct Cerv Spine W/O Contrast (12/26/17 00:16) Ct Facial Bones W/O Iv Cont (12/26/17 00:16) Ibuprofen (Motrin) (12/26/17 00:30) Ed Urine Pregnancytest Poc (12/26/17 00:40) MDM Medical Decision Making Medical Screen Exam Complete: Yes Emergency Medical Condition: Yes Differential Diagnosis Differential diagnosis of facial trauma includes but is not limited to soft tissue contusion, abrasions, laceration, nasal fracture, orbital fracture, zygomatic fracture Narrative Course This patient presents for the evaluation of injuries to her face which were sustained in a trip and fall just prior to arrival. Her exam is benign. Last Impressions Maxillofacial CT 12/26/1715 Signed Impressions: CONCLUSION: Unremarkable study. Cervical Spine CT 12/26/1715 Signed Impressions: CONCLUSION: Slight asymmetrical bulging disc is present towards the left C4-5 without any s ignificant compromise to the exiting nerve roots or the thecal sac. 1. Diagnosis Primary Impression: Facial contusion Qualified Codes: S00.83XA - Contusion of other part of head, initial encounter Patient Instructions: Facial Contusion (ED), General Instructions Additional Instructions: Tylenol or ibuprofen as needed for pain. Ice as needed for pain. Disposition: 01 DISCHARGE HOME Condition: Stable Vihdi Mcclellan MD December 26, 2017 00:53
[2017-12-26 01:03] VITALS: BP 122/72; PULSE 86; RESP 18; O2SAT 97
--- NOTE | 2017-12-26 01:22 | RADRPT ---
EXAM DATE: 12/26/2017 1:15 AM EDT AGE/SEX: 27 years / Female INDICATIONS: Trauma, fall. Right neck pain. CLINICAL DATA: This is the patient's initial encounter. Patient reports that signs and symptoms have been present for 1 day and indicates a pain score of 7/10. MEDICAL/SURGICAL HISTORY: None. None. RADIATION DOSE: 25.64 CTDI (mGy) COMPARISON: No prior exams available for comparison. TECHNIQUE: Contiguous axial images were obtained using helical multirow detector technique. The vol umetric data was post-processed with multiplanar reconstruction in oblique axial, sagittal, and coron al planes. Using automated exposure control and adjustment of the mA and/or kV according to patient s ize, radiation dose was kept as low as reasonably achievable to obtain optimal diagnostic quality jordan ges. FINDINGS: No significant subluxation or soft tissue swelling is seen. C2-C3: No appreciable compromise to the thecal sac, exiting nerve roots are seen. The neural foramin a are patent bilaterally. No appreciable thecal sac stenosis is seen. C3-C4: No appreciable compromise to the thecal sac, exiting nerve roots are seen. The neural foramin a are patent bilaterally. No appreciable thecal sac stenosis is seen. C4-C5: No appreciable compromise to the thecal sac, exiting nerve roots are seen. The neural foramin a are patent bilaterally. No appreciable thecal sac stenosis is seen. Slight asymmetrical bulging dis c is present towards the left without any significant compromise to the exiting nerve roots or the th ecal sac. C5-C6: No appreciable compromise to the thecal sac, exiting nerve roots are seen. The neural foramin a are patent bilaterally. No appreciable thecal sac stenosis is seen. C6-C7: No appreciable compromise to the thecal sac, exiting nerve roots are seen. The neural foramin a are patent bilaterally. No appreciable thecal sac stenosis is seen. C7-T1: No appreciable compromise to the thecal sac, exiting nerve roots are seen. The neural foramin a are patent bilaterally. No appreciable thecal sac stenosis is seen. CONCLUSION: Slight asymmetrical bulging disc is present towards the left C4-5 without any significant compromise to the exiting nerve roots or the thecal sac. 1. Electronically signed by: Noreen Wright MD 12/26/2017 1:21 AM EDT
--- NOTE | 2017-12-26 01:24 | RADRPT ---
EXAM DATE: 12/26/2017 1:19 AM EDT AGE/SEX: 27 years / Female INDICATIONS: Trauma, fall. Right maxilla pain. CLINICAL DATA: This is the patient's initial encounter. Patient reports that signs and symptoms have been present for 1 day and indicates a pain score of 7/10. MEDICAL/SURGICAL HISTORY: None. None. RADIATION DOSE: 24.64 CTDI (mGy) COMPARISON: No prior exams available for comparison. TECHNIQUE: Contiguous images in the axial and coronal planes were obtained using helical multirow de tector technique. Using automated exposure control and adjustment of the mA and/or kV according to p atient size, radiation dose was kept as low as reasonably achievable to obtain optimal diagnostic blair lity images. FINDINGS: No definite fractures, or dislocations are identified. No definite lytic or sclerotic lesion is seen . CONCLUSION: Unremarkable study. Electronically signed by: Noreen Wright MD 12/26/2017 1:23 AM EDT
[2017-12-26 01:38] VITALS: RESP 18
[2017-12-26 01:45] VITALS: BP 111/67
== END 2017-12-26 01:45 | disposition home or self-care (01) ==
LOC: PHED 23:57
DX: S00.83XA Contusion of other part of head, initial encounter (principal); D64.9 Anemia, unspecified; F31.9 Bipolar disorder, unspecified; K21.9 Gastro-esophageal reflux disease without esophagitis; F43.10 Post-traumatic stress disorder, unspecified; E27.40 Unspecified adrenocortical insufficiency; E27.1 Primary adrenocortical insufficiency; G62.9 Polyneuropathy, unspecified; W01.0XXA Fall on same level from slipping, tripping and stumbling without subsequent striking against object, initial encounter
CPT/HCPCS: 70486; 72125; 84703; 99283